=== PATIENT | female | born 1990 | race Hispanic/Latino ===

== ENCOUNTER 2021-12-28 15:53 | Emergency (ER) | payer SELFPAY ==
[2021-12-28] MEDS ORDERED: Moxifloxacin 0.5% Opth Drop 3 ML BOT EA EYE SCH (17:45)
[2021-12-28] MEDS ORDERED: Moxifloxacin 0.5% Opth Drop 3 ML BOT L EYE SCH (18:15)
== END 2021-12-28 19:00 | disposition home or self-care (01) ==
LOC: ERS 15:53
DX: H44.702 Unspecified retained (old) intraocular foreign body, nonmagnetic, left eye (principal); F17.210 Nicotine dependence, cigarettes, uncomplicated
CPT/HCPCS: 70480; 96374; J1956